=== PATIENT | female | born 1980 | race African-American/Black ===

== ENCOUNTER 2021-07-08 16:23 | Emergency (ER) | payer MEDICAID ==
[~2021-07-08] VITALS: Ht 170.2 cm; Wt 73.0 kg
[2021-07-08 16:28] VITALS: BP 162/90
[2021-07-08] MEDS ORDERED: LORAZEPAM 1MG TABLET PO ONE (16:45)
== END 2021-07-08 17:20 | disposition left against medical advice (07) ==
LOC: ER 16:23
DX: F41.9 Anxiety disorder, unspecified (principal); I10 Essential (primary) hypertension; Z86.59 Personal history of other mental and behavioral disorders
CPT/HCPCS: 99283